=== PATIENT | male | born 1980 | race Caucasian/White ===

== ENCOUNTER 2021-03-19 22:53 | Emergency (ER) | payer SELFPAY ==
[~2021-03-19] VITALS: Ht 182.9 cm; Wt 95.1 kg
[2021-03-19 22:58] VITALS: BP 150/103
--- NOTE | 2021-03-20 01:13 | NUR ---
PT LEFT AMA. PAPERWORK SIGNED
[2021-03-21] MEDS ORDERED: MORPHINE SULFATE 4 MG/ML, 1ML ONE (17:57)
== END 2021-03-20 ==
LOC: ED 03-20 01:10
DX: T78.40XA Allergy, unspecified, initial encounter (principal); X58.XXXA Exposure to other specified factors, initial encounter; Z53.21 Procedure and treatment not carried out due to patient leaving prior to being seen by health care provider